=== PATIENT | male | born 1950 | race Caucasian/White ===

== ENCOUNTER 2016-12-25 11:06 | Observation (INO) | payer OTHER ==
--- NOTE | 2016-12-25 11:17 | CPEKG ---
Heart Rate: 138 RR Interval: 435 P-R Interval: 188 QRSD Interval: 82 QT Interval: 256 QTC Interval: 388 P [place]: 265 QRS [place]: -55 T Wave [place]: 114 EKG Severity - ABNORMAL ECG - EKG Impression: Atrial flutter EKG Impression: VENTRICULAR PREMATURE COMPLEX EKG Impression: LEFT ANTERIOR FASCICULAR BLOCK EKG Impression: NONSPECIFIC REPOL ABNORMALITY, DIFFUSE LEADS Electronically Signed By: Debi Jaimes 25-Dec-2016 14:48:09
[2016-12-25 11:21] LABS: % IMMATURE GRANULYOCYTES 0.4 % (0.0-1.1); ABSOLUTE IMMATURE GRANULOCYTES 0.04 10^3/uL (0.00-0.10); ADD DIFF? NO; ADD MORPH? NO; ADD SCAN? NO; ATYPICAL LYMPHOCYTE FLAG 0 (0-99); FRAGMENT RBC FLAG 0 (0-99); HEMATOCRIT 45.8 % (40.0-51.0); HEMOGLOBIN 15.6 g/dL (13.7-17.5); LEFT SHIFT FLG 0 (0-99); LIPEMIA HEMOLYSIS FLAG 90 (0-99); MEAN CELL HEMOGLOBIN 31.3 pg (27.9-34.1); MEAN CELL HEMOGLOBIN CONCENTR. 34.1 g/dL (32.4-36.7); MEAN PLATELET VOLUME 9.5 fL (8.7-11.7); PLATELET CLUMPS FLAG 0 (0-99); PLATELET COUNT 253 10^3/uL (150-400); RED BLOOD CELL COUNT 4.98 10^6/uL (4.40-6.38); RED CELL DISTRIBUTION WIDTH 13.6 % (11.5-15.2)
--- NOTE | 2016-12-25 11:21 | EDPHY ---
H & P Time Seen by Provider: 12/25/16 11:09 HPI/ROS: CHIEF COMPLAINT: dyspnea HISTORY OF PRESENT ILLNESS: 66-year-old male , no daily medications, arrives via private vehicle from the office of Dr. Sean Marti. The patient went to Dr. ambrose office for complaints of 2-3 weeks of progressive dyspnea and dyspnea with exertion. No chest pain, No chest pain with exertion. No history cardiac abnormality, no history of vasculopathy. He travels frequently , has also been complaining of bilateral peripheral edema more so than usual. No leg pain or cramping. No URI symptoms. No sore throat. No cough. No back pain. No syncope or near syncope. PRIMARY CARE PROVIDER:Kaia REVIEW OF SYSTEMS: A ten point review of systems was performed and is negative with the exception of the items mentioned in the HPI PAST MEDICAL & SURGICAL HISTORY: No pertinent medical or surgical history SOCIAL HISTORY: nonsmoker. No illicit drug use. Frequent traveler PHYSICAL EXAM (Prior to examination, patient consented to physical exam, hands were washed and my usual and customary physical exam procedures followed) 1) GENERAL: Well-developed, well-nourished, alert and oriented. Appears to be in no acute distress. 2) HEAD: Normocephalic, atraumatic 3) HEENT: Pupils equal, round, reactive to light bilaterally. Sclera anicteric. Nasopharynx, oropharynx, clear, no lesions. Ears bilaterally with normal tympanic membranes. 4) NECK: Full range of motion, no meningeal signs. 5) LUNGS: Clear auscultation bilaterally, no wheezes, no rhonchi, no retractions. 6) HEART: Regular rate and rhythm, no murmur, no heave, no gallop. 7) ABDOMEN: No guarding, no rebound, no focal tenderness, negative McBurney's, negative Allred's, negative Rovsing's, negative peritoneal sign, 8) MUSCULOSKELETAL: positive bilateral 2+ pitting edema. DP PT pulses present and brisk bilaterally Moving all extremities, no focal areas of tenderness, no obvious trauma. No peripheral edema or discoloration. 9) BACK: No CVA tenderness, no midline vertebral tenderness, no fluctuance, no step-off, no obvious trauma, no visual or palpable abnormality. 10) SKIN: No rash, no petechiae. 11) Psychiatric: Patient is oriented X 3, there is no agitation. DIFFERENTIAL DIAGNOSIS: in no particular order including not limited to CHF, PE , infectious etiology, cardiac arrhythmia, atrial fibrillation, atrial flutter (Damaso Jenkins) Constitutional: Initial Vital Signs Temperature (C) 36.6 C 12/25/16 11:10 Heart Rate 138 H 12/25/16 11:10 Respiratory Rate 18 12/25/16 11:10 Blood Pressure 164/125 H 12/25/16 11:10 O2 Sat (%) 97 12/25/16 11:10 O2 Delivery Mode Nasal Cannula Allergies/Adverse Reactions: Penicillins Allergy (Verified 12/25/16 11:18) Home Medications: Medication Instructions Recorded C/E/Zn/Cu/OM3/DHA/EPA/LUT/ZEAX 1 each PO DAILY 12/25/16 [Preservision Areds 2 Softgel] Cholecalciferol Vit D3 [Vitamin D3 1,000 units PO DAILY 12/25/16 (*)] Herbals/Supplements -Info Only 1 each PO DAILY 12/25/16 Multivitamins [Multivitamin (*)] 1 each PO DAILY 12/25/16 Naproxen Sodium [Aleve 220 MG (*)] 220 mg PO DAILY PRN 12/25/16 Tabiona-3 Fatty Acids [Fish Oil 1000 1,000 mg PO DAILY 12/25/16 mg (*)] Medical Decision Making - Diagnostics EKG Interpretation: EKG interpreted by me reveals atrial flutter, ventricular rate 138, PVC, no ST or T segment changes. (Debi Jaimes) Imaging Results: Imaging Impressions Chest X-Ray 12/25/16 11:09 Impression: 1. Borderline cardiac enlargement. 2. Small bilateral pleural effusions. The patient is scheduled for a CT scan of the chest. Chest/Thorax CTA 12/25/16 11:31 Impression: 1. No evidence of pulmonary embolic disease. 2. Query low-grade congestive failure without pulmonary edema. 3. See above report for additional findings. Results called and discussed with Damaso PARRISH on 12/25/2016 at 12:47 ED Course/Re-evaluation: 11:24 a.m.: Discussed case with secondary supervising physician Dr. Jaimes in the ER who independently evaluated the patient. Given the patient's current presenting signs and symptoms of dyspnea, tachycardia, high clinical suspicion for pulmonary embolus. Recommended CT imaging for PE. Indications risks benefits discussed with patient and he consents. Care turned over to Dr. Debi Jaimes at 11:50 a.m. (Damaso Jenkins) 11:50 a.m.-this patient was seen and examined by me. Care assumed by me. He has a 6 week history of exertional shortness of breath and tachycardia. He has a home heart rate monitor and his heart rate has been in the 130s persistently. Associated with gradually increasing swelling in his legs. No chest pain or pressure. EKG interpreted by me reveals probable atrial flutter, ventricular rate 138, PVC, no ST or T segment changes. Chest x-ray independently reviewed by me reveals cardiomegaly and increased pulmonary vasculature. Likely atrial flutter causing pulmonary edema. Diltiazem 10 mg IV given. Heart rate slowed down to 100 after IV diltiazem. Repeat EKG reveals atrial flutter, ventricular rate 106. Heart rate quickly return to 120s. Diltiazem 10 mg IV (second dose) given, followed by a diltiazem drip. 1237: Consulted with hospitalist service, Dr. Frost accepts admission of this patient. 2pm: on Dilt drip, HR 100, BP 125/85, awaiting inpt bed (Debi Jaimes) Differential Diagnosis: Differential diagnosis includes though it is not limited to pneumonia, pneumothorax, pulmonary embolism, aortic dissection, pericarditis, acute coronary syndrome. (Debi Jaimes) - Data Points Laboratory Results: Laboratory Results 12/25/16 11:10 12/25/16 11:10 12/25/16 12/25/16 12/25/16 11:35 11:22 11:10 WBC RBC Hgb POC Hgb 15.0 gm/dL gm/dL (13.7-17.5) Hct POC Hct 44 % % (40-51) MCV MCH MCHC RDW Plt Count MPV Neut % (Auto) Lymph % (Auto) Weston % (Auto) Eos % (Auto) Baso % (Auto) Nucleat RBC Rel Count Absolute Neuts (auto) Absolute Lymphs (auto) Absolute Monos (auto) Absolute Eos (auto) Absolute Basos (auto) Absolute Nucleated RBC Immature Gran % Immature Gran # PT INR APTT D-Dimer POC Sodium 141 mEq/L mEq/L (134-144) Sodium 139 mEq/L mEq/L (134-144) POC Potassium 3.8 mEq/L mEq/L (3.3-5.0) Potassium 4.2 mEq/L mEq/L (3.5-5.2) POC Chloride 107 mEq/L mEq/L (97-110) Chloride 105 mEq/L mEq/L (97-110) Carbon Dioxide 20 mEq/l L mEq/l (22-31) Anion Gap 14 mEq/L mEq/L (8-16) POC BUN 26 mg/dL H mg/dL (7-23) BUN 26 mg/dL H mg/dL (7-23) Creatinine 1.2 mg/dL mg/dL (0.7-1.3) POC Creatinine 1.1 mg/dL mg/dL (0.7-1.3) Estimated GFR > 60 Glucose 113 mg/dL H mg/dL (70-100) POC Glucose 120 mg/dL H mg/dL (70-100) Calcium 9.9 mg/dL mg/dL (8.5-10.4) Troponin I 0.062 ng/mL H ng/mL (0.000-0.034) NT-Pro-B Natriuret Pep 1070 pg/mL H pg/mL (0-125) 12/25/16 12/25/16 11:10 11:10 WBC 10.69 10^3/uL H 10^3/uL (3.80-9.50) RBC 4.98 10^6/uL 10^6/uL (4.40-6.38) Hgb 15.6 g/dL g/dL (13.7-17.5) POC Hgb Hct 45.8 % % (40.0-51.0) POC Hct MCV 92.0 fL fL (81.5-99.8) MCH 31.3 pg pg (27.9-34.1) MCHC 34.1 g/dL g/dL (32.4-36.7) RDW 13.6 % % (11.5-15.2) Plt Count 253 10^3/uL 10^3/uL (150-400) MPV 9.5 fL fL (8.7-11.7) Neut % (Auto) 68.6 % % (39.3-74.2) Lymph % (Auto) 17.4 % % (15.0-45.0) Weston % (Auto) 12.6 % % (4.5-13.0) Eos % (Auto) 0.5 % L % (0.6-7.6) Baso % (Auto) 0.5 % % (0.3-1.7) Nucleat RBC Rel Count 0.0 % % (0.0-0.2) Absolute Neuts (auto) 7.34 10^3/uL H 10^3/uL (1.70-6.50) Absolute Lymphs (auto) 1.86 10^3/uL 10^3/uL (1.00-3.00) Absolute Monos (auto) 1.35 10^3/uL H 10^3/uL (0.30-0.80) Absolute Eos (auto) 0.05 10^3/uL 10^3/uL (0.03-0.40) Absolute Basos (auto) 0.05 10^3/uL 10^3/uL (0.02-0.10) Absolute Nucleated RBC 0.00 10^3/uL 10^3/uL (0-0.01) Immature Gran % 0.4 % % (0.0-1.1) Immature Gran # 0.04 10^3/uL 10^3/uL (0.00-0.10) PT 15.0 SEC SEC (12.0-15.0) INR 1.18 H (0.83-1.16) APTT 25.1 SEC SEC (23.0-38.0) D-Dimer 0.56 ug/mLFEU H ug/mLFEU (0.00-0.50) POC Sodium Sodium POC Potassium Potassium POC Chloride Chloride Carbon Dioxide Anion Gap POC BUN BUN Creatinine POC Creatinine Estimated GFR Glucose POC Glucose Calcium Troponin I NT-Pro-B Natriuret Pep Medications Given: Discontinued Medications Aspirin (Aspirin) 324 mg PO EDNOW ONE Stop: 12/25/16 12:40 Last Admin: 12/25/16 13:20 Dose: 324 mg Diltiazem HCl (Cardizem 25 Mg/5 Ml Vial) 10 mg IVP EDNOW ONE Stop: 12/25/16 11:56 Last Admin: 12/25/16 12:14 Dose: 10 mg Diltiazem HCl (Cardizem 25 Mg/5 Ml Vial) 10 mg IVP EDNOW ONE Stop: 12/25/16 12:39 Last Admin: 12/25/16 12:52 Dose: 10 mg Diltiazem HCl 125 mg/ Dextrose 125 mls @ 0 mls/hr IV EDNOW ONE; As Directed PRN Reason: Protocol Stop: 12/25/16 12:39 Last Admin: 12/25/16 13:22 Dose: 125 mls Point of Care Test Results: 12/25/16 11:22 POC Sodium 141 POC Potassium 3.8 POC Chloride 107 POC BUN 26 H POC Creatinine 1.1 POC Glucose 120 H Departure - Departure Disposition: [facility] Inpatient Acute Clinical Impression: Atrial flutter with rapid ventricular response Dyspnea Qualifiers: Dyspnea type: dyspnea on exertion Qualified Code(s): R06.09 - Other forms of dyspnea Condition: Fair
[2016-12-25 11:35] LABS: INR 1.18 (0.83-1.16)
[2016-12-25 11:36] LABS: APTT 25.1 SEC (23.0-38.0)
[2016-12-25 11:37] LABS: ANION GAP 14 mEq/L (8-16); CALCIUM 9.9 mg/dL (8.5-10.4); CARBON DIOXIDE 20 mEq/l (22-31); CHLORIDE 105 mEq/L (97-110); CREATININE 1.2 mg/dL (0.7-1.3); GLOMERULAR FILTRATION RATE > 60; GLUCOSE 113 mg/dL (70-100); POTASSIUM 4.2 mEq/L (3.5-5.2); SODIUM 139 mEq/L (134-144)
[2016-12-25 11:48] LABS: TROPONIN I 0.062 ng/mL (0.000-0.034)
[2016-12-25] MEDS ORDERED: IOPAMIDOL (ISOVUE 370) 100 ML BTL IV ONE (11:48)
[2016-12-25] MEDS ORDERED: DILTIAZEM 25 MG/5 ML VIAL IVP ONE ×2 (11:55→12:38)
[2016-12-25] MEDS ORDERED: DILTIAZEM 125 MG in D5W 125 ML IV ONE (12:38)
--- NOTE | 2016-12-25 12:38 | CPEKG ---
Heart Rate: 106 RR Interval: 566 QRSD Interval: 88 QT Interval: 356 QTC Interval: 473 QRS [place]: -55 EKG Severity - ABNORMAL ECG - EKG Impression: ATRIAL FLUTTER, A-RATE 272 EKG Impression: LEFT ANTERIOR FASCICULAR BLOCK EKG Impression: NONSPECIFIC T ABNORMALITIES, LATERAL LEADS Electronically Signed By: Debi Jaimes 25-Dec-2016 14:47:43
[2016-12-25] MEDS ORDERED: ASPIRIN 81 MG CHEWABLE TAB PO ONE (12:39)
[2016-12-25] MEDS ORDERED: TEMAZEPAM 15 MG CAP PO PRN (14:39)
[2016-12-25] MEDS ORDERED: ONDANSETRON DISINTEGRATING 4 MG TAB PO PRN (14:39)
[2016-12-25] MEDS ORDERED: ACETAMINOPHEN 325 MG TAB PO PRN (14:39)
[2016-12-25] MEDS ORDERED: ONDANSETRON 4 MG/2 ML VIAL IVP PRN (14:39)
[2016-12-25] MEDS ORDERED: oxyCODONE IR 5 MG TAB PO PRN (14:39)
[2016-12-25] MEDS ORDERED: HEPARIN 10,000 UNIT/10 ML MDV IVP PRN (14:41)
[2016-12-25] MEDS ORDERED: HEPARIN 10,000 UNIT/10 ML MDV IVP ONE (14:41)
[2016-12-25] MEDS ORDERED: HEPARIN/DEXTROSE 500 ML IV SCH (14:45)
[2016-12-25] MEDS ORDERED: DILTIAZEM 125 MG in D5W 125 ML IV SCH (14:45)
--- NOTE | 2016-12-25 15:38 | GHP ---
[f rep st] HISTORY AND PHYSICAL DATE OF ADMISSION: 12/25/2016 CHIEF COMPLAINT: Tachycardia. HISTORY OF PRESENT ILLNESS: This is a 66-year-old man sent in from Dr. Marti's office for tachycardia . He had been feeling short of breath for about the month before that. He had taken his pulse and f ound that it had been higher than normal. He has been unable to keep up with his on normal hike s. He has had slightly worsening of his lower extremity edema. He has no chest pain. He has no his tory of cardiovascular disease. He has never seen a systems support officer, never had a stress test or echocar diogram. He drinks about 30 alcoholic beverages a week. They had a recent trip to the [facility], where he may have binged more than normal. PAST MEDICAL/SURGICAL HISTORY: 1. Appendectomy. 2. Tonsillectomy. 3. Shoulder surgery. 4. Hemorrhoidectomy. MEDICATIONS: Please see medication reconciliation. ALLERGIES: Penicillin. SOCIAL HISTORY: Drinks as above. Does not smoke. Is accompanied by his . FAMILY HISTORY: His brother had heart disease at a young age. REVIEW OF SYSTEMS: A 10-point review of systems is conducted and is negative except per HPI. PHYSICAL EXAM: VITAL SIGNS: Blood pressure 124/79, heart rate 90, respiration rate 16, saturating 9 7% on 2 L. GENERAL: Mr. Butts is a pleasant man who appears comfortable, in no acute distress. HE ENT: Normocephalic, atraumatic. CARDIOVASCULAR: Irregularly irregular. There are no murmurs, rubs or gallops. PULMONARY: Lungs clear to auscultation bilaterally. SKIN: No rash. : No Mcfarland. NEUROLOGIC: Alert and oriented x3. He is moving all extremities. PSYCHIATRIC: Normal mood and aff ect. LABS: Basic metabolic panel shows a bicarb of 20. Troponin of 0.062. D-dimer 0.056. INR 1.18. Wh ite count 10.69. DATA: 1. I reviewed his chart. 2. I personally reviewed and interpreted his ECG. This shows atrial flutter initially with 2:1 bloc k, then intermittent 3:1 And 4:1 block. There is nothing acutely ischemic. 3. Chest and thorax CT angiogram shows no evidence of a PE, possible mild congestive heart failure. IMPRESSION AND PLAN: A 66-year-old male with new atrial fibrillation. 1. New atrial fibrillation: Discussed with Dorothy of cardiology, they will consult. Etiology may be holiday heart. We will check echocardiogram and TSH. He is to continue diltiazem drip. I will plac e him on heparin drip overnight. Make him n.p.o. after midnight for possible DIMITRIS cardioversion. 2. Mildly elevated troponin: No chest pain. By history, he has been in this arrhythmia for one sun. Suspect that this is demand. We will trend troponins. We will defer to Cardiology on further i schemic workup. 3. Alcohol use: He tells me he does not have any issues with withdrawal. Will not empirically plac e him on CIWA, but consider this based on the clinical setting. 4. Mild congestive heart failure: I do not think he needs Lasix at this time. This is likely due t o diastolic in the setting of ongoing tachycardia. 5. Code status is full. /[id number]/MODL
--- NOTE | 2016-12-25 18:00 | ECHO ---
[email or web address] [address] [address] Main: [phone] Fax: Transthoracic Echocardiogram Name: BOSTON BRADY MR#: [id number] Study Date: 12/25/2016 Study Time: 03:11 PM Date of : 1950 Age: 66 year(s) Height: 180.3 cm (71 in.) Weight: 95.71 kg (211 lb.) BSA: 2.16 m2 Gender: Male Examination: Echo Indication: Atrial Flutter Image Quality: Adequate Contrast: Requested by: Román Frost BP: 127 mmHg/85 mmHg Heart Rate: Rhythm: Atrial flutter Indication: Atrial Flutter Procedure Staff Screen Printing Stencil Preparer: María Elena Brock Reading Physician: Ceasar Lozada Requesting Provider: Conclusions: Moderate to severe left ventricular dysfunction with ejection fraction of 35-40% Moderate mitral regurgitation with left atrial enlargment. Measurements: Chambers Valvular Assessment AV/MV Valvular Assessment TV/PV Normal Normal Normal Name Value Range Name Value Range Name Value Range Ao Fabiola (MM): 3.6 cm (2.2 cm-3.7 AV Vmax: 0.85 m/s (1 m/s-1.7 TR Vmax: 2.63 mm/s ( - ) cm) m/s) TR PGmax: 28 mmHg ( - ) IVSd (2D): 1.1 cm (0.6 cm-1.1 AV maxP mmHg ( - ) syst. PAP: 38 mmHg ( - ) cm) LVOT Vmax: 0.74 m/s (0.7 m/s-1.1 PV Vmax: 0.64 m/s (0.6 m/s-0.9 LVDd (2D): 5.7 cm (4.2 cm-5.9 m/s) m/s) cm) NATALIE (Vmax): 3.0 cm2 ( - ) PV PGmax: 2 mmHg ( - ) LVDs (2D): 4.8 cm (2.1 cm-4 AR (PHT): 816 ms ( - ) cm) MV E Vmax: 0.66 m/s ( - ) LVPWd (2D): 1.1 cm (0.6 cm-1 MV maxP mmHg ( - ) cm) MV meanP mmHg ( - ) LVOTd 2.1 cm 2.1 cm mm LVEF (BP): 38 % (>=55 %) EF Range: 35-40 % RVDd(2D): 4.2 cm (1.9 cm-3.8 cmmm) Continued Measurements: Chambers Valvular Assessment AV/MV Valvular Assessment TV/PV Name Value Name Value Name Value LADs Lon.1 cm MV Annulus: 3.3 cm CVP (est.): 10 mmHg LA Area: 25.0 cm2 MV VTI: 7.50 cm LA Volume: 79 ml MR Vena Contracta: 0.4 cm Patient: BOSTON BRADY Study Date: 12/25/2016 Page 1 of 2 03:11 PM LA Volume Index: 36.6 ml/m2 MR ERO: 0.2 cm2 TAPSE: 1.4 cm MR PISA radius: 7 mm MR Reg. Volume: 30 ml MR Reg. Fraction: 47 % AR Vmax: 3.11 cm/s Additional Vessels Name Value Ao Ascendin.3 cm Findings: Left Ventricle: Left ventricle upper limits of normal. Borderline concentric LV hypertrophy. Mildly to moderately reduced systolic funtion. There is global hypokinesis. The ejection fraction is estimated to be 35-40 %. Right Ventricle: Mildly dilated right ventricle. Mildly reduced RV function. Left Atrium: The left atrium is mildly dilated. Right Atrium: The right atrium is mildly dilated. Mitral Valve: There is mild thickening of the mitral valve leaflets. Moderate mitral valve regurgitation is present. Aortic Valve: The aortic valve is tri-leaflet. Trivial aortic valve regurgitation. Tricuspid Valve: The tricuspid valve appears normal. Moderate tricuspid regurgitation is present. The pulmonary artery pressure is mildly increased. Pulmonic Valve: Pulmonary valve not well visualized. Trivial pulmonic valve regurgitation. IVC: The IVC is dilated. There is inspiratory collapse of the IVC. Pericardium: Pericardial effusion vs fat pad. (No Signature Object) Wall Motion Scores -1 - Not Scored, 0 - Unknown, 1 - Normal or hyperkinesia, 2 - Hypokinesia, 3 - Akinesia, 4 - Dyskinesia, 5 - Aneurysm Patient: BOSTON BRADY Study Date: 12/25/2016 Page 2 of 2 03:11 PM [id number]
[2016-12-26 04:13] LABS: % IMMATURE GRANULYOCYTES 0.5 % (0.0-1.1); ABSOLUTE IMMATURE GRANULOCYTES 0.04 10^3/uL (0.00-0.10); ADD DIFF? NO; ADD MORPH? NO; ADD SCAN? NO; ATYPICAL LYMPHOCYTE FLAG 10 (0-99); FRAGMENT RBC FLAG 0 (0-99); HEMATOCRIT 40.6 % (40.0-51.0); HEMOGLOBIN 13.8 g/dL (13.7-17.5); LEFT SHIFT FLG 0 (0-99); LIPEMIA HEMOLYSIS FLAG 90 (0-99); MEAN CELL HEMOGLOBIN 31.7 pg (27.9-34.1); MEAN CELL VOLUME 93.1 fL (81.5-99.8); MEAN PLATELET VOLUME 9.8 fL (8.7-11.7); PLATELET CLUMPS FLAG 20 (0-99); PLATELET COUNT 221 10^3/uL (150-400); RED BLOOD CELL COUNT 4.36 10^6/uL (4.40-6.38); RED CELL DISTRIBUTION WIDTH 13.8 % (11.5-15.2)
[2016-12-26 04:31] LABS: ALANINE AMINOTRANSFERASE 71 IU/L (21-72); ALBUMIN 3.5 g/dL (3.5-5.0); ALKALINE PHOSPHATASE 56 IU/L (38-126); ANION GAP 12 mEq/L (8-16); ASPARTATE AMINOTRANSFERASE 34 IU/L (17-59); BILIRUBIN,TOTAL 0.9 mg/dL (0.1-1.4); CALCIUM 8.7 mg/dL (8.5-10.4); CARBON DIOXIDE 18 mEq/l (22-31); CHLORIDE 108 mEq/L (97-110); GLOMERULAR FILTRATION RATE > 60; GLUCOSE 117 mg/dL (70-100); POTASSIUM 3.8 mEq/L (3.5-5.2); SODIUM 138 mEq/L (134-144); TOTAL PROTEIN 5.8 g/dL (6.3-8.2)
[2016-12-26] MEDS ORDERED: PRESERVISION AREDS2 FORMULA EYE VIT 1 EACH PO SCH (09:00)
[2016-12-26] MEDS ORDERED: OMEGA-3 FATTY ACIDS 1,000 MG CAP PO SCH (09:00)
[2016-12-26] MEDS ORDERED: NS 1,000 ML IV ONE (09:47)
--- NOTE | 2016-12-26 10:42 | GCON ---
[f rep st] CONSULTATION CARDIOLOGY CONSULTATION DATE OF CONSULTATION: 12/26/2016 REQUESTING PHYSICIAN FOR CONSULTATION: Dr. Frost. REASON FOR CONSULTATION: 1. New presentation of atrial flutter with rapid ventricular response. 2. Probable nonischemic cardiomyopathy. 3. Mild acute systolic CHF. HISTORY: The patient is a 66-year-old male with no prior cardiac history and no significant ongoing medical history. He presented to his PCP yesterday with a complaint of declining exercise capacity a nd dyspnea with exertion over the past few weeks. He had particularly noticed this on his daily walk s with his . He had not had any chest discomfort or significant signs of volume overload. Dr. Gaby laureano performed an ECG in the office, which demonstrated atrial flutter with a rapid ventricular respon se. The patient was sent to the hospital and has now been placed in observation. Overnight, he has been on intravenous heparin and diltiazem. This morning, his heart rate is less than 100 BPM, and he feels fine. PAST MEDICAL HISTORY: He has no ongoing issues such as hypertension, hyperlipidemia, or diabetes. Janel wright does not have any significant pulmonary or gastrointestinal history. He is on no prescription medi cations. SURGICAL HISTORY: Includes appendectomy, tonsillectomy, shoulder surgery, and hemorrhoidectomy. MEDICATIONS: As mentioned, no prescription medicines. He does take omega-3 fatty acid, multivitamin , vitamin D, and occasional Naprosyn. ALLERGIES: Penicillin. FAMILY HISTORY: Noncontributory. SOCIAL HISTORY: He is originally from the [place]. 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 He is a nonsmoker. His alcohol consumption is at least moderat e. He is . REVIEW OF SYSTEMS: Apart from the dyspnea on exertion that prompted this admission, a 10-point revie w was negative. PHYSICAL EXAMINATION: VITAL SIGNS: Heart rate in the 80s with atrial flutter on the monitor. Blood pressure 110/70. GENERAL: Well-developed, well-nourished male, in no acute distress. He is alert and oriented x3. HEAD AND NECK: No scleral icterus. Mucous membranes moist. Carotid pulses 2+ wit hout bruits. There is no JVD. CHEST: Lung barney clear to auscultation. CARDIAC: Irregular rhyth m with a normal rate. No murmur or gallop appreciated. ABDOMEN: Soft, nontender, nondistended, wit h normal bowel sounds. No masses. EXTREMITIES: 2+ pulses and no peripheral edema. LABORATORY STUDIES: Sodium 138, potassium 3.8, BUN and creatinine 23 and 1.0. Serial troponin level s were 0.071 and 0.081. BNP 1070. TSH 4.43. CBC with a white count of 7.91 and hemoglobin and dave tocrit of 13.8 and 40.6. Platelet count is 221. ECG: His ECG in the emergency room yesterday demonstrated atrial flutter with 2:1 AV conduction, pro ducing a ventricular rate of 138 BPM. No Q-waves or conduction system disturbances. No ischemic viviana nges. His ECG approximately 1 hour later on diltiazem demonstrated atrial flutter with variable AV b lock and a heart rate of 106 BPM. An echocardiogram performed yesterday demonstrates that his left ventricular size is at the upper [place] it of normal. Borderline concentric LVH is present. Left ventricular ejection fraction is moderatel y reduced at 35% to 40%. Mild biatrial enlargement was noted. He had mild mitral valve thickening w ith moderate mitral regurgitation. Moderate tricuspid regurgitation was also present. IMPRESSION: This is a 66-year-old male with a new presentation of atrial flutter. By his history, t his may have been persistent for the past few weeks. His left ventricular ejection fraction is moder ately reduced and could be tachycardia mediated. There is also a possible contribution from alcohol intake. He has mild systolic congestive heart failure. A BNP level was 1070. He does not have any evidence of significant volume overload. His mild troponin elevation is likely on the basis of suben docardial ischemia based on increased myocardial oxygen demand from his tachycardia. PLAN: I had a lengthy discussion with the patient about atrial flutter and its treatment. Plan will be for a DIMITRIS guided cardioversion later today. I expect that he could be discharged later today. Janel wright will be provided with a prescription for 1 month of Eliquis. We will decide about his long-term an ticoagulation strategy in the outpatient setting. He will be followed clinically and we will plan fo r repeat echocardiography to assess for improvement in his left ventricular function in approximately 90 days. His alcohol consumption should be significantly reduced or eliminated all together. /[id number]/MODL
[2016-12-26] MEDS ORDERED: MIDAZOLAM 2 MG/2 ML VIAL ONE (14:04)
[2016-12-26] MEDS ORDERED: PROPOFOL 200 MG/20 ML VIAL ONE ×2 (14:04→14:12)
--- NOTE | 2016-12-26 14:05 | PDPROPOC ---
Sedation Plan of Care Sedation Plan of Care: vital signs stable, mental status noted, patient educated of risks, benefits, alternatives, patient can tolerate sedation ASA Classification: ASA 1 Planned drugs: other (Anesthesia service to provide sedation.) Mallampati Reference Image:
--- NOTE | 2016-12-26 14:05 | PDHPUP ---
History & Physical Update H&P update statement: This history and physical update is based on an assessment of the patient which was completed after admission or registration (within 24 hours), but prior to the surgery/procedure. H&P update: H&P reviewed & patient examined, no change in patient's condition since H&P completed
[2016-12-26] MEDS ORDERED: LIDOCAINE 2% 5 ML SDV ONE (14:22)
[2016-12-26] MEDS ORDERED: ALBUTEROL 3 ML DEYVIAL ONE (14:27)
[2016-12-26] MEDS ORDERED: ALBUTEROL 3 ML DEYVIAL IH ONE (14:30)
[2016-12-26] MEDS ORDERED: PHENYLEPHRINE HCL 100 MCG/ML SYR ONE (14:37)
--- NOTE | 2016-12-26 14:41 | PDTEE1 ---
DIMITRIS Cardioversion Procedure Procedure: electrical cardioversion, transesophageal echo Indications: atrial fibrillation Consent: signed and in chart Anticoagulation: heparin Procedural Details: Pads were placed in anterior-posterior position. DIMITRIS probe was advanced and standard images obtained. There is no evidence of left atrial or left atrial appendage thrombus. Synchronized cardioversion attempt #1: 200J Results: normal sinus rhythm Conclusions: successful DIMITRIS cardioversion Patient Problems: Problems Problem Status Onset Atrial flutter with rapid ventricular response Acute Dyspnea Acute
[2016-12-26] MEDS ORDERED: APIXABAN 5 MG TAB PO SCH (14:45)
--- NOTE | 2016-12-26 14:46 | CPEKG ---
Heart Rate: 65 RR Interval: 923 P-R Interval: 192 QRSD Interval: 110 QT Interval: 480 QTC Interval: 500 P [place]: 0 QRS [place]: -47 T Wave [place]: -63 EKG Severity - ABNORMAL ECG - EKG Impression: SINUS RHYTHM EKG Impression: ATRIAL PREMATURE COMPLEX EKG Impression: LEFT ANTERIOR FASCICULAR BLOCK Preliminary Awaiting MD Review
[2016-12-26] MEDS ORDERED: LIDOCAINE 2% 100 MG/5 ML SYR IVP ONE (15:15)
[2016-12-26] MEDS ORDERED: NALOXONE HCL 0.4 MG/ML INJ IVP PRN (15:22)
[2016-12-26] MEDS ORDERED: ALBUTEROL 3 ML DEYVIAL IH PRN (15:22)
--- NOTE | 2016-12-26 15:22 | PDANEPAE ---
ANE Past Medical History - Cardiovascular History Hx Hypertension: Yes Hx Arrhythmias: Yes Hx Coronary Artery / Peripheral Vascular Disease: Yes Hx CHF / Valvular Disease: Yes Hx Palpitations: Yes - Pulmonary History Hx COPD: Yes Hx Asthma/Reactive Airway Disease: Yes Hx Recent Upper Respiratory Infection: Yes Hx Oxygen in Use at Home: Yes Hx Sleep Apnea: Yes Pulmonary History Comment: pulmonary hypertension - Endocrine History Hx Diabetes: No Obesity: yes, moderate ANE Review of Systems Review of Systems: ANE Patient History - Allergies Allergies/Adverse Reactions: Penicillins Allergy (Verified 12/25/16 11:18) - Home Medications Home Medications: C/E/Zn/Cu/OM3/DHA/EPA/LUT/ZEAX [Preservision Areds 2 Softgel] 1 each PO DAILY [Last Taken Unknown] Cholecalciferol Vit D3 [Vitamin D3 (*)] 1,000 units PO DAILY 12/25/16 [Last Taken Unknown] Herbals/Supplements -Info Only 1 each PO DAILY 12/25/16 [Last Taken Unknown] Multivitamins [Multivitamin (*)] 1 each PO DAILY 12/25/16 [Last Taken Unknown] Naproxen Sodium [Aleve 220 MG (*)] 220 mg PO DAILY PRN 12/25/16 [Last Taken Unknown] [place]-3 Fatty Acids [Fish Oil 1000 mg (*)] 1,000 mg PO DAILY 12/25/16 [Last Taken Unknown] - Smoking Hx Smoking Status: Never smoked ANE Labs/Vital Signs - Labs Result Diagrams: 12/26/16 03:48 12/26/16 03:48 - Vital Signs Blood Pressure: 108/78 Heart Rate: 80 Respiratory Rate: 14 O2 Sat (%): 90 Height: 180.34 cm Weight: 96.6 kg ANE Physical Exam - Airway Neck exam: decreased ROM, increased neck circumference, short neck Mallampati Score: Class 3 Mouth exam: normal dental/mouth exam - Pulmonary Pulmonary: reduced air movement - Cardiovascular Cardiovascular: irregularly irregular - ASA Status ASA Status: IV ANE Anesthesia Plan Anesthesia Plan: MAC
--- NOTE | 2016-12-26 15:25 | ASMTCMCOM ---
CM Note CM Note Notes: 12/26/2016 Case Management Note Reviewed chart, spoke w/RN. Pt had cardioversion today. No case management d/c needs identified d/t pt age and activity levels prior to admission. Pt is . Case Management d/c poc: Home with family support when medically stable with follow up as directed. Case Management available if needs change. Date Signed: 12/26/2016 03:25 PM Electronically Signed By:Jo Ann Gutierres RN
--- NOTE | 2016-12-26 15:26 | POSTANESTH ---
Post Anesthetic Evaluation Cardiovascular Status: Tx Hyper/Hypo-tension Respiratory Status: Requires Airway Assist, Other, See Comment Level of Consciousness/Mental Status: Mildly Sleepy, Arousable Pain Control: Adequate, Prn Tx Ordered Nausea/Vomiting Control: Adequate, Prn Tx Ordered (Patient had bronchospasm post cardioversion, required albuterol tx, lidocaine iv and jaw lift for airway patency. Recovered after 10 min, back to baseline)
--- NOTE | 2016-12-26 15:41 | PDDCSUM ---
Discharge Summary Discharge Summary: Dates of service 12/25-12/26/16 Consultations: cardiology Procedures performed: DIMITRIS/CV, echo, chest CTA Hospital course by problem: # a fib: initially started on dilt gtt and heparin gtt, taken for DIMITRIS and CV and doing well, patient will continue on eliquis and carvedilol per cardiology and f/u with them in the coming weeks # elevated trop; suspect related to demand in the setting of above, will f/u with cardiology after dc # acute systolic heart failure: with EF of 35-40% in the setting of a fib and etoh use, plan is for repeat echo in 90 days # VHD: with moderate TR on echo, again f/u as above # etoh use: recommending that he cut down or quit, likely contributing in part to above Dispo: dc home, f/u with cardiology > 35 minutes spent in dc, more than half in coordination of care
[2016-12-26 16:00] VITALS: BP 112/83; PULSE 82; RESP 16; TEMP 97.5; O2SAT 93
[2016-12-26] MEDS ORDERED: CARVEDILOL 6.25 MG TAB PO SCH (18:00)
== END 2016-12-26 17:24 | disposition home or self-care (01) ==
LOC: INTOOBSV 12:38 → F2W 15:47
PROVIDERS: ADMIT Student in an Organized Health Care Education/Training Program; ATTEND Internal Medicine
PROC: B245ZZ4 Ultrasonography of Left Heart, Transesophageal (ICD-10-PCS; principal; 2016-12-25)
PROC: 5A2204Z Restoration of Cardiac Rhythm, Single (ICD-10-PCS; principal; 2016-12-25)
DX: I48.92 Unspecified atrial flutter (principal); R79.9 Abnormal finding of blood chemistry, unspecified; I50.21 Acute systolic (congestive) heart failure; F10.10 Alcohol abuse, uncomplicated; I27.20 Pulmonary hypertension, unspecified; Z82.49 Family history of ischemic heart disease and other diseases of the circulatory system; Z88.0 Allergy status to penicillin
CPT/HCPCS: 71020; 71275; 92960; 93005; 93306; G0378; 82947-QW; 85520-90; 96374; J1644; J2001; J2250; J2370; J2704; Q9967

== ENCOUNTER 2017-01-19 09:40 | Day surgery (SDC) | payer OTHER ==
--- NOTE | 2017-01-19 09:59 | CPEKG ---
Heart Rate: 104 RR Interval: 577 P-R Interval: 176 QRSD Interval: 96 QT Interval: 344 QTC Interval: 453 P [place]: 91 QRS [place]: -62 T Wave [place]: 106 EKG Severity - ABNORMAL ECG - EKG Impression: SINUS TACHYCARDIA EKG Impression: LEFT ANTERIOR FASCICULAR BLOCK EKG Impression: CONSIDER ANTERIOR INFARCT Electronically Signed By: Cedric Clemens 19-Jan-2017 10:23:31
--- NOTE | 2017-01-19 09:59 | CPEKG ---
Heart Rate: 104 RR Interval: 577 P-R Interval: 176 QRSD Interval: 96 QT Interval: 344 QTC Interval: 453 P [place]: 91 QRS [place]: -62 T Wave [place]: 106 EKG Severity - ABNORMAL ECG - EKG Impression: SINUS TACHYCARDIA EKG Impression: LEFT ANTERIOR FASCICULAR BLOCK EKG Impression: CONSIDER ANTERIOR INFARCT Electronically Signed By: Cedric Clemens 19-Jan-2017 10:23:31
[2017-01-19] MEDS ORDERED: ATROPINE SULFATE 1 MG/10 ML SYR ONE ×2 (10:15)
[2017-01-19 10:36] LABS: INR 1.64 (0.83-1.16); PROTIME(PATIENT) 19.5 SEC (12.0-15.0)
[2017-01-19] MEDS ORDERED: PROPOFOL 200 MG/20 ML VIAL ONE ×2 (10:57)
--- NOTE | 2017-01-19 11:10 | PDTEE1 ---
DIMITRIS Cardioversion Procedure Procedure: electrical cardioversion Indications: other (Atrial flutter) Consent: signed and in chart Anticoagulation: eliqucassia Procedural Details: Pads were placed in anterior-posterior position. No DIMITRIS performed. Patient had a recent DIMITRIS that was negative for MIGUEL thrombus and has been maintained on systemic anticoagulation in the interim. Synchronized cardioversion attempt #1: 200J Results: normal sinus rhythm Conclusions: successful cardioversion Patient Problems: Problems Problem Status Onset Atrial flutter with rapid ventricular response Acute Dyspnea Acute
--- NOTE | 2017-01-19 11:11 | POSTANESTH ---
Post Anesthetic Evaluation Cardiovascular Status: Normal, Stable Respiratory Status: Normal, Stable Level of Consciousness/Mental Status: Can Participate in Eval Pain Control: Adequate, Prn Tx Ordered Nausea/Vomiting Control: Adequate, Prn Tx Ordered Complications Possibly Related to Anesthesia: None Noted
--- NOTE | 2017-01-19 11:11 | PDANEPAE ---
ANE History of Present Illness here for cv ANE Past Medical History - Cardiovascular History Hx Hypertension: Yes Hx Arrhythmias: Yes Hx Coronary Artery / Peripheral Vascular Disease: Yes Hx CHF / Valvular Disease: Yes Hx Palpitations: Yes - Pulmonary History Hx COPD: Yes Hx Asthma/Reactive Airway Disease: Yes Hx Recent Upper Respiratory Infection: Yes Hx Oxygen in Use at Home: Yes Hx Sleep Apnea: Yes Pulmonary History Comment: pulmonary hypertension - Endocrine History Hx Diabetes: No ANE Review of Systems Review of systems is: negative Review of Systems: ANE Patient History - Allergies Allergies/Adverse Reactions: Penicillins Allergy (Verified 01/18/17 10:29) - Home Medications Home medications: home medication list seen and reviewed Home Medications: C/E/Zn/Cu/OM3/DHA/EPA/LUT/ZEAX [Preservision Areds 2 Softgel] 1 each PO DAILY [Last Taken Unknown] Cholecalciferol Vit D3 [Vitamin D3 (*)] 1,000 units PO DAILY 12/25/16 [Last Taken Unknown] Herbals/Supplements -Info Only 1 each PO DAILY 12/25/16 [Last Taken Unknown] Multivitamins [Multivitamin (*)] 1 each PO DAILY 12/25/16 [Last Taken Unknown] Naproxen Sodium [Aleve 220 MG (*)] 220 mg PO DAILY PRN 12/25/16 [Last Taken Unknown] [place]-3 Fatty Acids [Fish Oil 1000 mg (*)] 1,000 mg PO DAILY 12/25/16 [Last Taken Unknown] Carvedilol [Coreg (*)] 12.5 mg PO BIDMEAL 01/19/17 [Last Taken 01/19/17 05:00] Flecainide Acetate PO BID 01/19/17 [Last Taken 01/19/17 05:00] - Smoking Hx Smoking Status: Former smoker ANE Labs/Vital Signs - Labs Result Diagrams: 01/19/17 10:10 - Vital Signs Height: 175 cm Weight: 95.3 kg ANE Physical Exam - Airway Neck exam: FROM Mallampati Score: Class 2 Mouth exam: normal dental/mouth exam - Pulmonary Pulmonary: no respiratory distress - Cardiovascular Cardiovascular: other (aflutter) ANE Anesthesia Plan Anesthesia Plan: GA with mask
--- NOTE | 2017-01-19 11:12 | CPEKG ---
Heart Rate: 72 RR Interval: 833 P-R Interval: 228 QRSD Interval: 104 QT Interval: 388 QTC Interval: 425 P [place]: 54 QRS [place]: -55 T Wave [place]: 56 EKG Severity - ABNORMAL ECG - EKG Impression: SINUS RHYTHM EKG Impression: FIRST DEGREE AV BLOCK EKG Impression: LEFT ANTERIOR FASCICULAR BLOCK EKG Impression: CONSIDER ANTERIOR INFARCT EKG Impression: BORDERLINE T ABNORMALITIES, ANTERIOR LEADS EKG Impression: FIRST DEGREE AVB IS NEW IN COMPARISON TO PRIOR ECG Electronically Signed By: Cedric Clemens 19-Jan-2017 11:36:59
== END 2017-01-19 12:34 | disposition home or self-care (01) ==
LOC: FCATH 09:40
PROVIDERS: ATTEND Internal Medicine Interventional Cardiology
PROC: 5A2204Z Restoration of Cardiac Rhythm, Single (ICD-10-PCS; principal; 2017-01-19)
DX: I48.92 Unspecified atrial flutter (principal); I27.20 Pulmonary hypertension, unspecified; I44.4 Left anterior fascicular block; I42.9 Cardiomyopathy, unspecified; Z79.01 Long term (current) use of anticoagulants; Z87.891 Personal history of nicotine dependence; Z82.49 Family history of ischemic heart disease and other diseases of the circulatory system; Z88.0 Allergy status to penicillin
CPT/HCPCS: J0461; J2704

== ENCOUNTER 2017-02-28 11:30 | Day surgery (SDC) | payer OTHER ==
[2017-02-28] MEDS ORDERED: NS 500 ML IV ONE (11:42)
[2017-02-28] MEDS ORDERED: MIDAZOLAM 2 MG/2 ML VIAL IVP ONE (11:42)
[2017-02-28] MEDS ORDERED: ATROPINE SULFATE 1 MG/10 ML SYR IVP ONE (11:42)
[2017-02-28] MEDS ORDERED: fentaNYL 100 MCG/2 ML INJ IVP ONE (11:42)
[2017-02-28 12:26] LABS: INR 1.65 (0.83-1.16); PROTIME(PATIENT) 19.6 SEC (12.0-15.0)
[2017-02-28 12:41] LABS: ANION GAP 16 mEq/L (8-16); CARBON DIOXIDE 21 mEq/l (22-31); CHLORIDE 108 mEq/L (97-110); CREATININE 1.1 mg/dL (0.7-1.3); GLOMERULAR FILTRATION RATE > 60; GLUCOSE 110 mg/dL (70-100); MAGNESIUM 1.9 mg/dL (1.6-2.3); SODIUM 145 mEq/L (134-144)
[2017-02-28] MEDS ORDERED: PROPOFOL 200 MG/20 ML VIAL ONE (13:07)
[2017-02-28] MEDS ORDERED: LIDOCAINE 2% 100 MG/5 ML SYR ONE (13:07)
[2017-02-28] MEDS ORDERED: SUCCINYLCHOLINE CHLORIDE*ANESTHESIA ONLY*200 MG/10 ML SYR IVP ONE (13:07)
--- NOTE | 2017-02-28 13:10 | PDANEPAE ---
ANE History of Present Illness a-fib s/f DC CV ANE Past Medical History - Cardiovascular History Hx Hypertension: No Hx Arrhythmias: Yes Hx Coronary Artery / Peripheral Vascular Disease: No Hx CHF / Valvular Disease: No Hx Palpitations: No - Pulmonary History Hx COPD: No Hx Asthma/Reactive Airway Disease: No Hx Recent Upper Respiratory Infection: No Hx Oxygen in Use at Home: No Hx Sleep Apnea: No Pulmonary History Comment: pulmonary hypertension - Endocrine History Hx Diabetes: No ANE Review of Systems Review of Systems: - Exercise capacity METS (RN): 4 METS ANE Patient History - Allergies Allergies/Adverse Reactions: Penicillins Allergy (Verified 01/18/17 10:29) - Home Medications Home medications: home medication list seen and reviewed Home Medications: C/E/Zn/Cu/OM3/DHA/EPA/LUT/ZEAX [Preservision Areds 2 Softgel] 1 each PO DAILY [Last Taken Unknown] Cholecalciferol Vit D3 [Vitamin D3 (*)] 1,000 units PO DAILY 12/25/16 [Last Taken Unknown] Herbals/Supplements -Info Only 1 each PO DAILY 12/25/16 [Last Taken Unknown] Multivitamins [Multivitamin (*)] 1 each PO DAILY 12/25/16 [Last Taken Unknown] Naproxen Sodium [Aleve 220 MG (*)] 220 mg PO DAILY PRN 12/25/16 [Last Taken Unknown] [place]-3 Fatty Acids [Fish Oil 1000 mg (*)] 1,000 mg PO DAILY 12/25/16 [Last Taken Unknown] Carvedilol [Coreg (*)] 12.5 mg PO BIDMEAL 01/19/17 [Last Taken 01/19/17 05:00] Flecainide Acetate PO BID 01/19/17 [Last Taken 01/19/17 05:00] - NPO status NPO Status: no food or drink >8 hours - Anes Hx Anes Hx: no prior problems - Smoking Hx Smoking Status: Former smoker ANE Labs/Vital Signs - Labs Result Diagrams: 02/28/17 12:05 ANE Physical Exam - Airway Neck exam: decreased ROM Mallampati Score: Class 2 Mouth exam: normal dental/mouth exam - Pulmonary Pulmonary: no respiratory distress - Cardiovascular Cardiovascular: irregularly irregular - ASA Status ASA Status: II ANE Anesthesia Plan Anesthesia Plan: GA with mask (propofol)
[2017-02-28] MEDS ORDERED: PHENYLEPHRINE HCL 100 MCG/ML SYR IVP PRN (13:12)
[2017-02-28] MEDS ORDERED: DEXAMETHASONE 4 MG/ML VIAL IVP PRN (13:12)
[2017-02-28] MEDS ORDERED: ALBUTEROL 3 ML DEYVIAL IH PRN (13:12)
[2017-02-28] MEDS ORDERED: ONDANSETRON 4 MG/2 ML VIAL IVP PRN (13:12)
[2017-02-28] MEDS ORDERED: NALOXONE HCL 0.4 MG/ML INJ IVP PRN (13:12)
[2017-02-28] MEDS ORDERED: fentaNYL 100 MCG/2 ML INJ IVP PRN (13:12)
[2017-02-28] MEDS ORDERED: LR 500 ML IV PRN (13:12)
--- NOTE | 2017-02-28 13:21 | PDTEE1 ---
DIMITRIS Cardioversion Procedure Procedure: electrical cardioversion Indications: other (atrial flutter) Consent: signed and in chart Anticoagulation: eliquis Procedural Details: Pads were placed in anterior-posterior position. No DIMITRIS performed. A recent DIMITRIS was negative for MIGUEL thrombus and the patient has been on continuous systemic anticoagulation. Synchronized cardioversion attempt #1: 200J Results: normal sinus rhythm Conclusions: successful cardioversion Patient Problems: Problems Problem Status Onset Atrial flutter with rapid ventricular response Acute Dyspnea Acute
--- NOTE | 2017-02-28 13:27 | CPEKG ---
Heart Rate: 63 RR Interval: 952 P-R Interval: 248 QRSD Interval: 116 QT Interval: 424 QTC Interval: 435 P [place]: 37 QRS [place]: -57 T Wave [place]: 151 EKG Severity - ABNORMAL ECG - EKG Impression: SINUS RHYTHM EKG Impression: ATRIAL PREMATURE COMPLEX EKG Impression: FIRST DEGREE AV BLOCK EKG Impression: LEFT ANTERIOR FASCICULAR BLOCK EKG Impression: BORDERLINE R WAVE PROGRESSION, ANTERIOR LEADS Electronically Signed By: Marissa Mora 28-Feb-2017 14:28:10
--- NOTE | 2017-03-01 14:50 | CPEKG ---
Heart Rate: 85 RR Interval: 706 P-R Interval: 256 QRSD Interval: 120 QT Interval: 404 QTC Interval: 481 P [place]: 100 QRS [place]: -63 T Wave [place]: 123 EKG Severity - ABNORMAL ECG - EKG Impression: SINUS RHYTHM EKG Impression: FIRST DEGREE AV BLOCK EKG Impression: NONSPECIFIC IVCD WITH LAD EKG Impression: PROBABLE INFERIOR INFARCT, AGE INDETERMINATE Electronically Signed By: Marissa Mora 01-Mar-2017 18:56:49
== END 2017-02-28 15:12 | disposition home or self-care (01) ==
LOC: FCATH 11:30
PROVIDERS: ATTEND Internal Medicine Interventional Cardiology
PROC: 5A2204Z Restoration of Cardiac Rhythm, Single (ICD-10-PCS; principal; 2017-02-28)
DX: I48.1 Persistent atrial fibrillation (principal); I48.92 Unspecified atrial flutter; I27.20 Pulmonary hypertension, unspecified; I50.9 Heart failure, unspecified; I42.9 Cardiomyopathy, unspecified; Z79.01 Long term (current) use of anticoagulants; Z87.891 Personal history of nicotine dependence; Z82.49 Family history of ischemic heart disease and other diseases of the circulatory system; Z88.0 Allergy status to penicillin
CPT/HCPCS: J0330; J2001; J2704

== ENCOUNTER 2017-05-17 06:45 | Observation (INO) | payer OTHER ==
[2017-05-17] MEDS ORDERED: NS 1,000 ML IV ONE (06:49)
--- NOTE | 2017-05-17 07:11 | CPEKG ---
Heart Rate: 78 RR Interval: 769 QRSD Interval: 116 QT Interval: 404 QTC Interval: 461 QRS [place]: -62 T Wave [place]: 59 EKG Severity - ABNORMAL ECG - EKG Impression: ATRIAL FIBRILLATION EKG Impression: LAD, CONSIDER LEFT ANTERIOR FASCICULAR BLOCK EKG Impression: LEFT VENTRICULAR HYPERTROPHY EKG Impression: ATRIAL FIBRILLATION IS NEW IN COMPARISON TO PRIOR Electronically Signed By: Cedric Clemens 17-May-2017 18:02:11
[2017-05-17 07:21] LABS: PLATELET COUNT 203 10^3/uL (150-400)
[2017-05-17 07:30] LABS: INR 1.05 (0.83-1.16); PROTIME(PATIENT) 13.9 SEC (12.0-15.0)
[2017-05-17] MEDS ORDERED: LIDOCAINE 1% 300 MG/30 ML SDV ONE (07:39)
[2017-05-17] MEDS ORDERED: BUPIVACAINE 0.5% 10 ML SDV ONE ×2 (07:39→07:40)
[2017-05-17] MEDS ORDERED: MIDAZOLAM 2 MG/2 ML VIAL IVP ONE (08:49)
--- NOTE | 2017-05-17 08:52 | PDANEPAE ---
ANE History of Present Illness ep ablation ANE Past Medical History - Cardiovascular History Hx Hypertension: No Hx Arrhythmias: Yes Hx Coronary Artery / Peripheral Vascular Disease: No Hx CHF / Valvular Disease: No Hx Palpitations: No - Pulmonary History Hx COPD: No Hx Asthma/Reactive Airway Disease: No Hx Recent Upper Respiratory Infection: No Hx Oxygen in Use at Home: No Hx Sleep Apnea: No Pulmonary History Comment: pulmonary hypertension - Endocrine History Hx Diabetes: No - Renal History Hx Renal Disorders: No - Liver History Hx Hepatic Disorders: No ANE Review of Systems Review of Systems: - Exercise capacity Exercise capacity: >=4 METS ANE Patient History - Allergies Allergies/Adverse Reactions: Penicillins Allergy (Verified 01/18/17 10:29) - Home Medications Home Medications: C/E/Zn/Cu/OM3/DHA/EPA/LUT/ZEAX [Preservision Areds 2 Softgel] 1 each PO DAILY [Last Taken Unknown] Herbals/Supplements -Info Only 1 each PO DAILY 12/25/16 [Last Taken Unknown] Multivitamins [Multivitamin (*)] 1 each PO DAILY 12/25/16 [Last Taken Unknown] Naproxen Sodium [Aleve 220 MG (*)] 220 mg PO DAILY PRN 12/25/16 [Last Taken Unknown] [place]-3 Fatty Acids [Fish Oil 1000 mg (*)] 1,000 mg PO DAILY 12/25/16 [Last Taken Unknown] Carvedilol [Coreg (*)] 12.5 mg PO BIDMEAL 01/19/17 [Last Taken 01/19/17 05:00] Flecainide Acetate 100 mg PO BID 01/19/17 [Last Taken 01/19/17 05:00] Furosemide [Lasix 20 MG (*)] 40 mg PO DAILY 05/12/17 [Last Taken Unknown] - NPO status NPO Status: no food or drink >8 hours - Smoking Hx Smoking Status: Former smoker ANE Labs/Vital Signs - Labs Result Diagrams: 05/17/17 07:07 05/17/17 07:07 - Vital Signs Height: 175 cm Weight: 87.1 kg ANE Physical Exam - Airway Mallampati Score: Class 2 Mouth exam: normal dental/mouth exam - Pulmonary Pulmonary: no respiratory distress - Cardiovascular Cardiovascular: irregularly irregular - ASA Status ASA Status: II ANE Anesthesia Plan Anesthesia Plan: general endotracheal anesthesia
--- NOTE | 2017-05-17 09:01 | PDGENHP ---
History & Physical Chief Complaint: SOA and palpitations History of Present Illness: Af and AFl Pertinent Past, Social, Family History: Reviewed Relevant Physical Exam: CTA no rales rhonchii. s1s2 regular no murmurs Cardiorespiratory Assessment: Normal
[2017-05-17] MEDS ORDERED: ROCURONIUM 100 MG/10 ML VIAL ONE (09:04)
[2017-05-17] MEDS ORDERED: DEXAMETHASONE 4 MG/ML VIAL ONE (09:05)
[2017-05-17] MEDS ORDERED: SUCCINYLCHOLINE CHLORIDE 200 MG/10 ML SYR IVP ONE (09:05)
[2017-05-17] MEDS ORDERED: fentaNYL 100 MCG/2 ML INJ ONE (09:05)
[2017-05-17] MEDS ORDERED: LIDOCAINE 2% 5 ML SDV ONE (09:05)
[2017-05-17] MEDS ORDERED: PROPOFOL 200 MG/20 ML VIAL ONE (09:05)
[2017-05-17] MEDS ORDERED: PHENYLEPHRINE HCL 100 MCG/ML SYR ONE (09:26)
[2017-05-17] MEDS ORDERED: PHENYLEPHRINE 10 MG/ML SDV ONE (09:28)
[2017-05-17] MEDS ORDERED: ISOPROTERENOL HCL/D5W 0.2 MG/50 ML BAG IV ONE (09:31)
[2017-05-17] MEDS ORDERED: HEPARIN 10,000 UNIT/10 ML MDV (1,000 UNIT/ML) ONE (09:31)
[2017-05-17] MEDS ORDERED: ROCURONIUM 50 MG/5 ML VIAL ONE ×2 (12:04)
[2017-05-17] MEDS ORDERED: SUGAMMADEX SODIUM 200 MG/2 ML VIAL IVP ONE (12:16)
[2017-05-17] MEDS ORDERED: OXYCODONE/APAP 5/325 TAB PO PRN (12:26)
[2017-05-17] MEDS ORDERED: ACETAMINOPHEN 325 MG TAB PO PRN (12:26)
[2017-05-17] MEDS ORDERED: ONDANSETRON 4 MG/2 ML VIAL IVP PRN (12:26)
[2017-05-17] MEDS ORDERED: NAPROXEN SODIUM 220 MG TAB PO PRN (12:28)
[2017-05-17] MEDS ORDERED: NALOXONE HCL 0.4 MG/ML INJ IVP PRN (12:45)
[2017-05-17] MEDS ORDERED: ALBUTEROL 3 ML DEYVIAL IH PRN (12:45)
[2017-05-17] MEDS ORDERED: fentaNYL 100 MCG/2 ML INJ IVP PRN (12:45)
[2017-05-17] MEDS ORDERED: ATROPINE SULFATE 1 MG/10 ML SYR ONE (12:53)
--- NOTE | 2017-05-17 13:44 | CPEKG ---
Heart Rate: 80 RR Interval: 750 P-R Interval: 236 QRSD Interval: 116 QT Interval: 424 QTC Interval: 490 P [place]: 63 QRS [place]: -66 T Wave [place]: -53 EKG Severity - ABNORMAL ECG - EKG Impression: SINUS RHYTHM EKG Impression: FIRST DEGREE AV BLOCK EKG Impression: LEFT ANTERIOR FASCICULAR BLOCK EKG Impression: PROBABLE LVH WITH SECONDARY REPOL ABNRM Electronically Signed By: Cedric Clemens 17-May-2017 18:02:32
[2017-05-17] MEDS: CARVEDILOL 6.25 MG TAB PO SCH (17:08)
[2017-05-17] MEDS: FLECAINIDE ACETATE 100 MG TAB PO SCH (21:48)
[2017-05-17] MEDS: APIXABAN 5 MG TAB PO SCH (21:48)
[2017-05-18 04:29] LABS: PLATELET COUNT 178 10^3/uL (150-400)
[2017-05-18 04:34] LABS: INR 1.22 (0.83-1.16); PROTIME(PATIENT) 15.6 SEC (12.0-15.0)
[2017-05-18 04:40] LABS: CREATINE KINASE 51 IU/L (0-224)
[2017-05-18 08:03] VITALS: BP 112/75; PULSE 72; RESP 13; TEMP 98.1; O2SAT 94
[2017-05-18] MEDS: FLECAINIDE ACETATE 100 MG TAB PO SCH (08:07)
[2017-05-18] MEDS: APIXABAN 5 MG TAB PO SCH (08:07)
[2017-05-18] MEDS: CARVEDILOL 6.25 MG TAB PO SCH (08:08)
--- NOTE | 2017-05-18 08:50 | CPEKG ---
Heart Rate: 72 RR Interval: 833 P-R Interval: 232 QRSD Interval: 118 QT Interval: 420 QTC Interval: 460 P [place]: 46 QRS [place]: -50 T Wave [place]: -55 EKG Severity - ABNORMAL ECG - EKG Impression: SINUS RHYTHM EKG Impression: FIRST DEGREE AV BLOCK EKG Impression: LEFT ANTERIOR FASCICULAR BLOCK Electronically Signed By: Cedric Clemens 18-May-2017 20:40:04
[2017-05-18] MEDS ORDERED: Herbals/Supplements -Info Only PO SCH (09:00)
[2017-05-18] MEDS ORDERED: MULTIVITAMINS 1 EACH TAB PO SCH (09:00)
[2017-05-18] MEDS ORDERED: FUROSEMIDE 20 MG TAB PO SCH (09:00)
[2017-05-18] MEDS ORDERED: OMEGA-3 FATTY ACIDS 1,000 MG CAP PO SCH (09:00)
[2017-05-18] MEDS ORDERED: FUROSEMIDE 40 MG TAB PO SCH (09:00)
[2017-05-18] MEDS ORDERED: PRESERVISION AREDS2 FORMULA EYE VIT 1 EACH PO SCH (09:00)
--- NOTE | 2017-05-18 11:30 | ECHO ---
[email or web address] [address] Main: [phone] Fax: Transthoracic Echocardiogram Name: BOSTON BRADY MR#: [id number] Study Date: 05/18/2017 Study Time: 08:24 AM Date of : 1950 Age: 66 year(s) Height: 175.3 cm (69 in.) Weight: 87.09 kg (192 lb.) BSA: 2.03 m2 Gender: Male Examination: Echo Indication: F/U post EP study Image Quality: Excellent Contrast: Requested by: Ryan Banerjee BP: 112 mmHg/75 mmHg Heart Rate: Rhythm: Indication: F/U post EP study Procedure Staff Retail Sales Consultant: Yarelis Pratt RDCS Reading Physician: Ceasar Lozada MD Requesting Provider: Conclusions: No pericardial effusion. Preserved left ventricular systolic function. Borderline right ventricular size and function. Mild biatrial enlargement. Moderate tricuspid regurgitation with a normal RVSP. Measurements: Chambers Valvular Assessment AV/MV Valvular Assessment TV/PV Normal Normal Normal Name Value Range Name Value Range Name Value Range Ao Fabiola (MM): 3.4 cm (2.2 cm-3.7 AV meanP mmHg ( - ) TR Vmax: 2.40 mm/s ( - ) cm) MV E Vmax: 0.62 m/s ( - ) TR PGmax: 23 mmHg ( - ) IVSd (2D): 1.4 cm (0.6 cm-1.1 MV A Vmax: 0.29 m/s ( - ) syst. PAP: 28 mmHg ( - ) cm) MV E/A: 2.14 ( - ) LVDd (2D): 5.4 cm (4.2 cm-5.9 cm) LVDs (2D): 3.9 cm (2.1 cm-4 cm) LVPWd (2D): 1.1 cm (0.6 cm-1 cm) LVEF (MOD4): 57 % (>=55 %) EF Range: 60-65 % Continued Measurements: Chambers Valvular Assessment AV/MV Valvular Assessment TV/PV Name Value Name Value Name Value LADs: 5.0 cm MV E/E' Septal: 11.70 CVP (est.): 5 mmHg LADs Lon.9 cm MV E/E' Lateral: 6.70 LA Area: 31.2 cm2 Patient: BOSTON BRADY Study Date: 05/18/2017 Page 1 of 2 08:24 AM Findings: Left Ventricle: Normal size left ventricle. No LV hypertrophy. Normal global systolic LV function. The ejection fraction is estimated to be 60-65 %. Normal diastolic LV function. LV septal motion consistent with conduction abnormality.. Right Ventricle: Upper normal size right ventricle. Mildly reduced RV function. Left Atrium: The left atrium is mildly dilated. Right Atrium: The right atrium is moderately dilated. Mitral Valve: The mitral valve is normal in appearance and function. Mild mitral valve regurgitation is present. Aortic Valve: The aortic valve is normal in appearance and function. Trivial aortic valve regurgitation. Tricuspid Valve: The tricuspid valve is normal in appearance and function. Moderate tricuspid regurgitation is present. The pulmonary artery pressure is normal. Pulmonic Valve: The pulmonic valve is normal in appearance and function. Aorta: The aorta is normal. Pericardium: No pericardial effusion. There is pericardial fat. (No Signature Object) Patient: BOSTON BRADY Study Date: 05/18/2017 Page 2 of 2 08:24 AM [id number]
--- NOTE | 2017-05-18 11:33 | EPPROC ---
Electrophysiology Procedure Note: INDICATION: Recurrent atrial flutter PROCEDURES PERFORMED: 82906-85 EP evaluation with RA/RV/LA pace/record, with arrhythmia induction 85361-24 EP evaluation with RA/RV pace record, insert/reposition catheter, with arrhythmia induction 92354 SVT ablation 87394 3D mapping Fluoroscopy [facility] Catheters & Anesthesia: The patient arrived in the Electrophysiology Laboratory in the fasting state. The right clavicular region, right groin, and left groin area were prepped and draped in the usual sterile manner. Anesthesiologist administered general anesthesia. Appropriate non-invasive blood pressure, pulse oximetry and end- tidal CO2 monitoring was established. All catheters were placed percutaneously using the modified Seldinger technique , and advanced into position under fluoroscopic guidance. One #6 [place] deflectable decapolar catheter was advanced into the CS and another one into the ALRA position via the RFV. Heparin was administered Programmed stimulation was performed from the right atrium, coronary sinus ( left atrium) and right ventricle. On arrival to the Electrophysiology Laboratory the patient was in Atrial flutter , CL 350 ms. Entrainment mapping from lateral TA, septal TA, proximal CS and distal CS confirmed cavotricuspid isthmus dependent atrial flutter. In preparation for ablation of typical atrial flutter, a high-resolution 3D (3 dimensional) Carto electroanatomical map of the sub-Eustachian isthmus and right atrium was obtained during pacing of the posterolateral coronary sinus. A #8 [place] deflectable quadripolar electrode catheter (2mm-5mm-2mm spacing) with 3.5 mm irrigated tip electrode and location sensor for the SamEnrico mapping system was inserted in the long sheath and advanced to the right atrium. Radiofrequency applications were applied between the tricuspid annulus at 0630 oclock as seen in the ITALIAN view and the inferior vena cava. This achieved conduction block across the isthmus Following ablation of the atrial flutter, programmed atrial stimulation was performed in the baseline state. AF was induced and he was cardioverted from it. Post ablation, a high-resolution electroanatomical map of the sub-Eustachian isthmus was obtained during pacing of the posterolateral coronary sinus. This confirmed conduction block across the sub-Eustachian isthmus. Bidirectional block was also confirmed by pacing. The catheters were removed. The patient was transferred to the cardiovascular holding area in stable condition. Vascular access sheaths were removed in the holding area. There were no apparent complications. Results: Typical isthmus dependent counterclockwise right atrial flutter Successful ablation of the isthmus Bidirectional block post ablation No induction of Aflutter post ablation CONCLUSIONS: * Cavotricuspid isthmus dependent counterclockwise atrial flutter. * Successful catheter mediated ablation of cavotricuspid isthmus achieving bi- directional conduction block across cavotricuspid isthmus. * No atrial arrhythmias inducible post ablation. * No apparent complications. Patient Problems: Problems Problem Status Onset Atrial flutter with rapid ventricular response Acute Dyspnea Acute
--- NOTE | 2017-05-18 12:02 | GDS ---
[f rep st] DISCHARGE SUMMARY ADMISSION DIAGNOSES: 1. Paroxysmal atrial fibrillation. 2. Paroxysmal atrial flutter. 3. Nonischemic cardiomyopathy. 4. Chronic systolic heart failure. DISCHARGE DIAGNOSES: 1. Paroxysmal atrial fibrillation. 2. Paroxysmal atrial flutter. 3. Status post atrial flutter ablation. 4. Nonischemic cardiomyopathy. 5. Chronic systolic heart failure. PROCEDURES PERFORMED DURING HOSPITALIZATION: 1. Electrocardiogram. 2. Electrophysiology study. 3. Atrial flutter ablation. 4. Echocardiogram. BRIEF HISTORY: The patient is a 66-year-old male with noted history of atrial fibrillation and atria l flutter, it was noted initially when pounding, he demonstrated a cardiomyopathy which was felt to b e likely tachycardia. He has had an MPI study showing no signs of ischemia or infarction. He had be en initially cardioverted, without success. He was started on antiarrhythmic therapy of flecainide, in which he was cardioverted. Unfortunately, despite antiarrhythmic therapy, he continues to have epi sodes of atrial flutter. He was seen by Dr. Banerjee, was given the options of doing atrial fibrillation /A-flutter ablation, med management for his atrial fibrillation, with flecainide, with attempted elec trophysiology and A-flutter ablation. The patient chose to continue with his antiarrhythmic therapy of flecainide for his atrial fibrillation and then attempt A-flutter ablation. HOSPITAL COURSE: Patient was admitted through the [facility], prepped for procedure, and taken to electroph ysiology lab. There, Dr. Banerjee performed EP procedure, successfully identifying A-flutter source, and ablating with no complications. Patient was taken back to the C[facility], and ultimately to the PCU for ove rnight observation. There, he has remained in sinus rhythm, occasional PAC, no malignant arrhythmias or pauses noted. The patient denies any chest pain, shortness of breath, or feelings of palpitation s throughout the evening. He has been up and walking the unit without difficulties. PHYSICAL EXAMINATION: GENERAL APPEARANCE: Today, a medium built, well-groomed, male. He is alert and oriented to person, place, time, situation. Appears to be under no acute distress. VIT AL SIGNS: Current vital signs are blood pressure 112/75, heart rate of 72 sinus rhythm on the monito r, respirations 13, saturating 94% on room air, temperature 36.7 degrees Celsius. HEENT: Head is no rmocephalic. Lips and tongue are pink and moist with no signs of cyanosis. Conjunctivae pink. NECK : Trachea is midline, +2 carotid pulses bilateral. No auscultated bruits. No jugular vein distentio n. RESPIRATORY: Lungs clear to auscultation. No rhonchi, rales or wheezes, no accessory muscle use , no intercostal muscle retraction noted. CARDIAC: Regular rate, regular rhythm, S1, S2, 1-2/6 syst olic murmur noted along the left sternal border. No S3-S4, gallops or rubs noted. ABDOMEN: Soft, n ontender, bowel sounds x4 quadrants, no organomegaly, no palpable masses. SKIN: [place], warm, dry, no cyanosis, no clubbing, trace to +1 peripheral edema bilateral lower extremities. VASCULAR: +2 loera tids bilateral, +2 radials bilateral, +1 dorsal pedal and posterior tibial pulses bilateral. Groin s ite, catheter insertion site, right groin site, without redness, swelling, drainage, ecchymosis or he matoma. No auscultated bruit over site. LABORATORY STUDIES: Drawn today show WBC of 11.04 hemoglobin of 14.6, hematocrit of 42.5, platelet c ount of 172. INR 1.22. Sodium 140, potassium 4.1, chloride 106, CO2 of 22, BUN 18, creatinine 1.0, gl ucose 102, calcium 8.9. CK of 51, CK-MB fraction 2.64. Troponin 0.313. Note, expected to have eleva jace cardiac enzymes status post ablation. STUDIES: Electrophysiology and ablation procedure as mentioned above, morning electrocardiogram show s sinus rhythm with first degree AV block, left anterior fascicular block. Preliminary echocardiogra m done this morning showing normal LV size, no LVH, normal LV global systolic function with EF of 60% -65%, LV septal wall consistent with conduction abnormalities. RV was mildly dilated, moderately red uced RV function, LA was mildly dilated, RA is moderately dilated, mild MR, trivial AI, moderate TR, no pericardial effusion. DISCHARGE DISPOSITION: Patient will be discharged home in stable condition. He is under no strenuou s activities for the next week, not lifting more than 10 pounds. DISCHARGE MEDICATIONS: Please see discharge medication reconciliation sheet. Note, patient has been resumed on full anticoagulation therapy of Eliquis. DISCHARGE INSTRUCTIONS: Post EP/atrial flutter ablation discharge instructions went over with the pa tiemomo including monitoring for signs of infection, bleeding precautions, activity restrictions, bathi ng precautions, and medication compliancy. At the time of discharge, patient verbalizes understandin g of all instructions and has no questions or concerns. He has been told that, if any problems or co ncerns post discharge, he is to notify our office or return to the hospital. The patient has [place] [facility] [place] appointment set up with Dr. Banerjee in 3 weeks. Total time spent on discharge greater than 30 minutes. /[id number]/MODL
== END 2017-05-18 10:15 | disposition home or self-care (01) ==
LOC: FCATH 06:45 → F2W 12:26
PROVIDERS: ADMIT Internal Medicine Cardiovascular Disease; ATTEND Internal Medicine Cardiovascular Disease
PROC: B2161ZZ Fluoroscopy of Right and Left Heart using Low Osmolar Contrast (ICD-10-PCS; principal; 2017-05-17)
PROC: 02K83ZZ Map Conduction Mechanism, Percutaneous Approach (ICD-10-PCS; principal; 2017-05-17)
PROC: 5A1213Z Performance of Cardiac Pacing, Intermittent (ICD-10-PCS; principal; 2017-05-17)
PROC: 02583ZZ Destruction of Conduction Mechanism, Percutaneous Approach (ICD-10-PCS; principal; 2017-05-17)
PROC: B246ZZ4 Ultrasonography of Right and Left Heart, Transesophageal (ICD-10-PCS; principal; 2017-05-17)
PROC: 4A023FZ Measurement of Cardiac Rhythm, Percutaneous Approach (ICD-10-PCS; principal; 2017-05-17)
DX: I48.0 Paroxysmal atrial fibrillation (principal); I48.92 Unspecified atrial flutter; I42.9 Cardiomyopathy, unspecified; I50.22 Chronic systolic (congestive) heart failure; I27.20 Pulmonary hypertension, unspecified; Z87.891 Personal history of nicotine dependence; Z88.0 Allergy status to penicillin
CPT/HCPCS: 93005; 93306; 93613; 93621; 93653; C1893; G0378; C1730; C1732; J0330; J0461; J1100; J1644; J2250; J2370; J2704; J3010